=== PATIENT | female | born 1945 | race Caucasian/White ===

== ENCOUNTER 2017-06-13 13:22 | Outpatient (CLI) | payer OTHER, MEDICARE | END 2017-06-13 19:34 | disposition home or self-care (01) | LOC: SMA 13:22 | PROVIDERS: ATTEND Obstetrics & Gynecology | DX: Z12.31 Encounter for screening mammogram for malignant neoplasm of breast (principal) | CPT/HCPCS: G0202 ==

== ENCOUNTER 2018-12-04 13:00 | Outpatient (CLI) | payer OTHER, MEDICARE | END 2018-12-04 20:24 | disposition home or self-care (01) | LOC: SMA 13:00 | PROVIDERS: ATTEND Obstetrics & Gynecology | DX: Z12.31 Encounter for screening mammogram for malignant neoplasm of breast (principal) | CPT/HCPCS: 77067 ==

== ENCOUNTER 2020-03-13 12:58 | Outpatient (CLI) | payer OTHER, MEDICARE | END 2020-03-13 20:56 | disposition home or self-care (01) | LOC: SUS 12:58 | PROVIDERS: ATTEND Obstetrics & Gynecology | DX: N63.20 Unspecified lump in the left breast, unspecified quadrant (principal); Z98.82 Breast implant status | CPT/HCPCS: 76642; 77066 ==